=== PATIENT | female | born 1980 | race Caucasian/White ===

== ENCOUNTER → 2019-02-10 | Outpatient (CLI) | payer MEDICAID ==
--- NOTE | 2019-02-10 16:33 | Diagnostic Imaging Report ---
INDICATION: Palpable lump in the right breast. COMPARISON: No prior mammograms are available for comparison. This is a baseline study. TECHNIQUE: Bilateral 2D and 3D diagnostic mammography was performed with CAD. FINDINGS: Scattered fibroglandular densities are identified bilaterally. A BB-marker was placed at the area of palpable abnormality in the medial right breast. No underlying mass is seen. The right breast parenchyma is unremarkable. There is a circumscribed nodule in the outer left breast approximately 12 cm from the nipple. This may be superiorly located on the MLO view. This has benign features but further evaluation with ultrasound is recommended. There are no suspicious calcifications. The axillae are unremarkable. IMPRESSION: 1. No suspicious abnormality in the right breast is seen at the area of palpable abnormality. Even so, an ultrasound of this area is recommended and will be performed today. 2. Small circumscribed benign-appearing nodule in the outer left breast at posterior depth. This, too, will be further evaluated with ultrasound. ACR BI-RADS Category 0: Incomplete. (Needs additional imaging evaluation). Result letter will be mailed to the patient. Note: At least 10% of breast cancer is not imaged by mammography. Dictated by: Dictated on workstation # [id number]
--- NOTE | 2019-02-10 16:43 | Diagnostic Imaging Report ---
INDICATION: Palpable lump in the medial right breast. In addition, the patient has a circumscribed nodule in the lateral left breast on mammogram. This study is performed for further evaluation. COMPARISON: Correlation is made with the diagnostic mammogram from earlier this same day. FINDINGS: Sonographic interrogation of the area of lump in the right breast was performed. This corresponds to the medial right breast. No sonographic abnormality is seen. No solid or cystic mass is detected. Interrogation of the upper outer left breast was also performed. There are two small cysts at approximately the 1 to 1:30 location. The largest is 6 mm x 5 mm. The second cyst is 5 mm x 4 mm. These likely account for the mammographic density. No solid lesion is seen. IMPRESSION: 1. No sonographic abnormality at the area of palpable abnormality in the medial right breast is identified. Close clinical followup is recommended to confirm stability. 2. Simple cysts in the upper outer left breast correspond to the mammographic density. ACR BI-RADS Category 2: Benign findings. Result letter will be mailed to the patient. Note: At least 10% of breast cancer is not imaged by mammography. Dictated by: Dictated on workstation # [id number]
== END ==
LOC: RAD 13:24
PROVIDERS: ATTEND Registered Nurse
DX: N60.02 Solitary cyst of left breast (principal); N63.10 Unspecified lump in the right breast, unspecified quadrant
CPT/HCPCS: 76642; 77066

== ENCOUNTER → 2020-03-20 | Outpatient (CLI) | payer MEDICAID ==
--- NOTE | 2020-03-20 10:57 | Diagnostic Imaging Report ---
PROCEDURE: US OB SINGLE FETUS <14 WKS. TECHNIQUE: Multiple Real-time grayscale images were obtained over the gravid uterus in various projections. INDICATION: dating. FINDINGS: There is an intrauterine gestational sac containing a pole. The crown/rump length measurement is 15 mm, consistent with a 7 weeks 6 days gestational age. The heart rate was recorded at 179 BPM. No eunice-gestational sac hemorrhage is detected. Adnexal evaluation demonstrates a probable cyst involving the right ovary measuring approximately 2.6 x 2.8 cm in size. No free fluid is seen. IMPRESSION: 1. Single live IUP of 7 weeks 6 days gestational age. The estimated date of confinement sonographically is 10/31/2020. 2. Right ovarian cyst. Dictated by: Dictated on workstation # [id number]
== END ==
LOC: RAD 09:37
PROVIDERS: ATTEND Family Medicine
DX: O34.81 Maternal care for other abnormalities of pelvic organs, first trimester (principal); N83.201 Unspecified ovarian cyst, right side; Z3A.01 Less than 8 weeks gestation of pregnancy
CPT/HCPCS: 76801

== ENCOUNTER → 2020-05-31 | Outpatient (CLI) | payer MEDICAID ==
--- NOTE | 2020-05-31 16:56 | Diagnostic Imaging Report ---
INDICATION: Routine anatomic survey. TECHNIQUE: Multiple Real-time grayscale images were obtained over the gravid uterus. COMPARISON: None. MEASUREMENTS: Number: Single live Presentation: Cephalic Placenta: Anterior Amniotic Fluid: SHYANNE is within normal limits, subjectively. Objective measurements were not obtained. Heart Rate: 133 bpm BPD: 4.4 cm; consistent with 19 weeks and 3 days HC: 15.8 cm; consistent with 18 weeks and 5 days AC: 13.4 cm; consistent with 19 weeks and 0 days FL: 2.9 cm; consistent with 18 weeks and 6 days EGA from current exam: 19 weeks and 0 days gestation plus or minus 2 NAILA from current exam: 10/25/2020 CLINICAL DATES: Gestational age 18 weeks and 1 day, NAILA 10/31/2020 EFW: 260 g +/- 38 g. This is consistent with the 36th percentile. FINDINGS: The anatomic survey is grossly unremarkable. The stomach, four-chamber heart, kidneys, bladder, three-vessel cord, and the cord insertion are well seen. The spine and intracranial structures are grossly unremarkable. IMPRESSION: Single live intrauterine at approximately 19 weeks and 0 days with an NAILA of 10/25/2020. These are concordant with clinical dates. No gross abnormalities are seen at this time. Dictated by: Dictated on workstation # [id number]
== END ==
LOC: RAD 12:00
PROVIDERS: ATTEND Family Medicine
DX: Z34.02 Encounter for supervision of normal first pregnancy, second trimester (principal); Z3A.19 19 weeks gestation of pregnancy
CPT/HCPCS: 76805

== ENCOUNTER → 2020-08-08 | Outpatient (CLI) | payer MEDICAID ==
--- NOTE | 2020-08-08 08:55 | NUR ---
DION LOCKWOOD presented to unit via ambulation from registration for rhogam administration. DION LOCKWOOD shown to waiting room while waiting for lab to prepare dose.
--- NOTE | 2020-08-08 09:25 | NUR ---
Pt ambulates off unit to private vehicle, no s/s of distress noted.
== END ==
LOC: WSo 08:43
PROVIDERS: ATTEND Family Medicine
DX: O36.0990 Maternal care for other rhesus isoimmunization, unspecified trimester, not applicable or unspecified (principal); Z3A.00 Weeks of gestation of pregnancy not specified
CPT/HCPCS: 96372

== ENCOUNTER → 2020-09-04 | Outpatient (CLI) | payer MEDICAID | LOC: CARD 15:09 | PROVIDERS: ATTEND Family Medicine | DX: R42 Dizziness and giddiness (principal) | CPT/HCPCS: 93005 ==

== ENCOUNTER → 2020-10-19 | Outpatient (CLI) | payer MEDICAID ==
--- NOTE | 2020-10-19 17:03 | Diagnostic Imaging Report ---
INDICATION: patient, evaluate growth. TECHNIQUE: Multiple real-time grayscale images were obtained over the gravid uterus. COMPARISON: 05/31/2020 FINDINGS: A single live intrauterine fetus is seen measuring 39 weeks 3 days by composite measurements with sonographic EDC of 10/23/2020. There has been normal interval growth compared to the prior study. Amniotic fluid index is 6.88 cm. Placenta is anterior with no evidence of previa. heart rate is 135 bpm. Maternal adnexa showed no free fluid. The fetus scored 2 out of 2 on breathing, movement, posture and tone, and amniotic fluid index. Biometrical measurements are as follows: Biparietal 9.33 cm, age 38 weeks 0 days. Head circumference 34.32 cm, age 39 weeks 5 days. Abdominal circumference 35.75 cm, age 39 weeks 5 days. Femur length 7.80 cm, age 40 weeks 0 days. Sonographic estimate age: 39 weeks 3 days. Sonographic estimated date of delivery: 10/23/2020. Estimated Weight: 3796 gm (+/- 554 gm). LMP percentile: 78%. heart rate: 135 beats per minute. number: 1 of 1. IMPRESSION: Single live intrauterine fetus measuring 39 weeks 3 days in size as described above. biophysical profile score was 8 out of 8. Dictated by: Dictated on workstation # [id number]
== END ==
LOC: RAD 14:30
PROVIDERS: ATTEND Obstetrics & Gynecology
DX: O09.523 Supervision of elderly multigravida, third trimester (principal); Z3A.39 39 weeks gestation of pregnancy
CPT/HCPCS: 76805; 76819

== ENCOUNTER 2020-10-24 06:30 | Inpatient (IN) | payer MEDICAID ==
[~2020-10-24] VITALS: Ht 172.7 cm; Wt 123.0 kg
[2020-10-24] VITALS (58 sets, daily range): BP systolic 95–153; BP diastolic 48–88
[2020-10-24] MEDS ORDERED: D5 LR IV SOLUTION 1,000 ML IV ONE (07:09)
[2020-10-24] MEDS ORDERED: fentaNYL 2 mcg/ml BUPIVA 0.125 100 ML ONE (07:09)
[2020-10-24] MEDS ORDERED: LACTATED RINGERS 1,000 ML IV ONE (07:09)
[2020-10-24] MEDS ORDERED: MINERAL OIL CONCENTRATE 99.9% 15 ML UDC TOP PRN (08:00)
[2020-10-24 08:10] LABS: BASOPHILS % (AUTO) 0 % (0-10); EOSINOPHILS # (AUTO) 0.2 10^3/uL (0.0-0.3); EOSINOPHILS % (AUTO) 1 % (0-10); HEMATOCRIT 35 % (35-52); HEMOGLOBIN 11.3 g/dL (11.5-16.0); LYMPHOCYTES # (AUTO) 2.2 10^3/uL (1.0-4.0); LYMPHOCYTES % (AUTO) 18 % (12-44); MEAN CORPUSCULAR HEMOGLOBIN 29 pg (25-34); MEAN CORPUSCULAR HGB CONC 33 g/dL (32-36); MEAN CORPUSCULAR VOLUME 88 fL (80-99); MEAN PLATELET VOLUME 12.3 fL (9.0-12.2); MONOCYTES # (AUTO) 0.8 10^3/uL (0.0-1.0); MONOCYTES % (AUTO) 7 % (0-12); NEUTROPHILS # (AUTO) 8.6 10^3/uL (1.8-7.8); NEUTROPHILS % (AUTO) 72 % (42-75); PLATELET COUNT 315 10^3/uL (130-400)
[2020-10-24] MEDS ORDERED: NALOXONE 0.4 MG/ML 1 ML (NARCAN) VIAL IV PRN ×2 (08:45)
[2020-10-24] MEDS ORDERED: LACTATED RINGERS 1,000 ML IV SCH (08:45)
[2020-10-24] MEDS ORDERED: diphenhydrAMINE 50 MG/ML INJ (BENADRYL) IV PRN (08:45)
[2020-10-24] MEDS ORDERED: EPIDURAL (fentaNYL 2 MCG/ML BUPIVA 0.125%)100 ML BAG EPI SCH (08:45)
[2020-10-24] MEDS ORDERED: METOCLOPRAMIDE INJ 10 MG/2 ML (REGLAN) IV PRN (08:45)
[2020-10-24] MEDS ORDERED: ONDANSETRON 4 MG/2 ML (SDV) Z0FRAN IV PRN (08:45)
[2020-10-24] MEDS ORDERED: OXYTOCIN PRE-MIX DRIP 500 ML IV ONE (09:34)
[2020-10-24] MEDS: D5 LR IV SOLUTION 1,000 ML IV SCH ×2 (09:44→15:38)
[2020-10-24] MEDS: OXYTOCIN PRE-MIX DRIP 500 ML IV SCH ×2 (09:45→19:06)
--- NOTE | 2020-10-24 09:51 | History & Physical-OB ---
OB - Chief Complaint & HPI Date/Time Date of Admission: Date of Admission: Oct 24, 2020 at 06:53 Date seen by a Provider: Oct 24, 2020 Time Seen by a Provider: 09:00 Chief Complaint/History OB-Reason for Admission/Chief: Induction of Labor (TOLAC) Hx : 7 Hx Para: 5 Expected Date of Delivery: Oct 25, 2020 Gestational Age in Weeks: 39 Gestational Age in Days: 6 Indication for induction: other (TOLAC Advanced maternal age) Indication for : other Other reason for admission: This is a 40 year old at 39 6/7 weeks. she was referred to me by Dr. Glover for history of CS desiring TOLAC. She has had 4 vaginal deliveries that were uncomplicated. Babies weight 6#9ounces-8#5ounces. She had a CS with last for distress/intolerance to labor. This has been uncomplicated. She had US last week showing vertex fetus with SHYANNE of 6.8 cm, BPP 8/8. EFW 3700 + grams. Wanted to await spontaneous labor, but agreed to induction if not delivered by 40 weeks as she wanted to OLIVIA. She has signed the TOLAC consent form and appropriate consent forms. GBS is negative. No LOF, no VB, BH contractions, good FM. Cervix in office yesterday was 2-3 cm/soft/ant-mid/-2. Plan admission with epidural, AROM and pitocin. Dr. Glover will be the baby's physician. Admission Nurse Assessment Rev: Yes History of Labs A-/-; Rhogam received at 28 weeks Rub I VDRL NR HbSAg - HIV - GBS - GC/Ch - Cannot find TDaP vaccination during so may not have received this. Allergies and Home Medications Allergies Coded Allergies: No Known Drug Allergies (Verified Allergy, Unknown, 01/18/08) Patient Home Medication List Home Medication List Reviewed: Yes OB - History Hx of Present Care: Yes Ultrasounds: Normal mid trimester US Obstetrical Complications: None Medical Complications: None, Other (AMA, previous section) Information Induced Hypertension: No Maternal Gestational Diabetes: No Obstetrical History Hx : 7 Hx Para: 5 Hx # Term Pregnancies: 5 Hx # Pregnancies: 0 Number of Living Children: 5 Hx Termination: No Hx Total # of Abortions (Spona: 1 Hx Multiple Gestation: No Hx Ectopic : No Hx Stillbirth: No (16 week miscarriage) Hx Complication: No Hx Induced Hypertens: No Hx Maternal Gestational Diabet: No Delivery History Hx Dystocia: No Hx Forceps Assisted Delivery: No Hx Vacuum Extraction Assisted: No Hx Placenta Abnormality: No Hx Distress: Yes Hx Large For Gestational Age I: No Hx Small for Gestational Age I: No Hx Section: Yes Hx Vaginal Delivery Post C-Sec: No Hx Blood Disorders: No Patient Past Medical History depression/Cymbalta Social History/Family History Alcohol Use: Denies Use Recreational Drug Use: No Smoking Cessation: Former smoker Significant Family Hx hypertension Immunizations Hepatitis B: Yes Tetanus Booster (TDap): Unknown Rubella: immune RPR/VDRL: Negative GBS Status: Negative HBsAG: Negative OB - Admission Exam Physical Exam Vitals: see RN chart Heart: Rhythm Normal Lungs: Clear Abdomen: Gravid Extremities: Edema (1+) Reflexes: Normal Cervical Dilatation: 3cm Effacement: 50% Station: -2 Membranes: Intact (AROM on exam) Amniotic Fluid: Clear Heart Rate: 140's Accelerations: Accelerations Present Decelerations: No Decelerations Short Term Variability: Present Fpc Variability: Average (6-25) Contractions on Admission: 6-10 Minutes Apart Macedo Scoring Tool (Modified) Dilation (cm): 3-4cm (2) Effacement (%): 31-51% (1) Descent/Station: -2 (1) Cervix Consistency: Soft (2) Cervix Position: Anterior (2) Add 1 point for: Each previous vaginal delivery (1) (4) Macedo Score: 12 Labs Laboratory Tests Test 10/24/20 07:25 Range/Units White Blood Count 12.0 H 4.3-11.0 10^3/uL Red Blood Count 3.93 3.80-5.11 10^6/uL Hemoglobin 11.3 L 11.5-16.0 g/dL Hematocrit 35 35-52 % Mean Corpuscular Volume 88 80-99 fL Mean Corpuscular Hemoglobin 29 25-34 pg Mean Corpuscular Hemoglobin Concent 33 32-36 g/dL Red Cell Distribution Width 13.4 10.0-14.5 % Platelet Count 315 130-400 10^3/uL Mean Platelet Volume 12.3 H 9.0-12.2 fL Immature Granulocyte % (Auto) 2 % Neutrophils (%) (Auto) 72 42-75 % Lymphocytes (%) (Auto) 18 12-44 % Monocytes (%) (Auto) 7 0-12 % Eosinophils (%) (Auto) 1 0-10 % Basophils (%) (Auto) 0 0-10 % Neutrophils # (Auto) 8.6 H 1.8-7.8 10^3/uL Lymphocytes # (Auto) 2.2 1.0-4.0 10^3/uL Monocytes # (Auto) 0.8 0.0-1.0 10^3/uL Eosinophils # (Auto) 0.2 0.0-0.3 10^3/uL Basophils # (Auto) 0.0 0.0-0.1 10^3/uL Immature Granulocyte # (Auto) 0.2 H 0.0-0.1 10^3/uL OB - Assessment/Plan/Diagnosis Assessment Assessment: induction of labor Admission Dx 1. 40 year old at 39 6/7 weeks with history of previous CS for TOLAC 2. Advanced maternal age Plan admission with epidural. Has signed appropriate consents. Calculated chance of > 75 % AROM and then augmentation with pitocin. We have discussed the risks and benefits of TOLAC/. vs repeat section and she has requested TOLAC. Appropriate consents, including the TOLAC consent has been signed and are on the chart. She will have epidural placed and then proceed with induction. She understands that there is still a possibility of repeat section for normal section indications, but that with previous uterine scar (LT) there is a slight increase in uterine rupture. However, her chance of vaginal delivery is much greater. She understands there is a risk of bleeding, infection, uterine rupture requiring emergency surgery, blood transfusion, and maternal due to uterine rupture, bleeding, thrombosis, epidural and anesthesia related complications. Will proceed with planned TOLAC and expect a vaginal delivery (). Admission Status: Inpatient Order (span 2 midnights) Reason for Inpatient Admission: induction and delivery Plan Plan: Induction Induction Method: per Pitocin Protocol ZELALEM VO DO Oct 24, 2020 09:50
[2020-10-24] MEDS ORDERED: CATHETER FLUSH 10 ML SYR IV SCH ×2 (14:00→22:00)
[2020-10-24] MEDS ORDERED: TRANEXAMIC ACID INJECTION 1,000 MG in NS (IVPB) 100 ML IV NR (16:00)
--- NOTE | 2020-10-24 18:35 | OB Labor & Delivery Record ---
Vag Delivery Note Vag Delivery Note Date of Delivery: 10/24/20 Preoperative Diagnosis: Brenna Chamberlain is a 40 /Para 7 / 5,Gestational Age 39 6/7 week, history of previous , Advanced maternal age Postoperative Diagnosis: Same Surgeon: ZELALEM VO Machine Guide Base Winder: Nestor Vizcarra, MS III Anesthesia: epidural Delivery Type: Vaginal after Findings: Viable male infant, apgars pending, weight pending Lacerations: none Intact placenta with 3 vessel cord. Nuchal cord x 1 delivered thorough, no body cord or shoulder dystocia Estimated Blood Loss: 200 ml Complications: None Condition: Stable Description of Procedure: The patient is a 40 year old female who presented for trial of labor after section. She was admitted and informed consent was obtained. Her labor course was remarkable for artificial rupture of membranes and augmentation by pitocin. She progressed to complete dilatation and began to push. She was then set up for delivery. The infant's head was delivered atraumatically in the left position. The shoulders and remainder of the infant's body were then delivered without difficulty. Upon delivery, the head was held below the level of the perineum and the mouth and nares were bulb suctioned. The cord was doubly clamped and cut and the infant was handed off to the pediatric staff. An intact placenta with 3-vessel cord delivered via Antony and there was found to be minimal bleeding.~ Vigorous fundal massage was performed and the fundus was found to be firm. IV tansexamic acid given prior to delivery of placenta for hemorrhage prophylaxis. IV oxytocin was given. Examination of the vagina and perineum revealed bilateral periurethral lacerations not repaired. Following the delivery, sponge, instrument and needle counts were correct. Mom and baby were both in stable condition in the labor suite. Vitals - Labs Vital Signs - I&O Vital Signs Date Time Temp Pulse Resp B/P (MAP) Pulse Ox O2 Delivery O2 Flow Rate FiO2 10/24/20 16:00 82 20 128/75 (92) 98 Room Air 10/24/20 15:45 113 20 119/70 (86) 99 Room Air 10/24/20 15:30 77 20 133/78 (96) 99 Room Air 10/24/20 15:15 69 20 133/76 (95) 98 Room Air 10/24/20 15:00 86 20 126/87 (100) 97 Room Air 10/24/20 14:45 77 20 142/82 (102) 99 Room Air 10/24/20 14:30 75 20 129/65 (86) 98 Room Air 10/24/20 14:15 80 20 127/77 (94) 98 Room Air 10/24/20 14:00 71 20 129/67 (87) 96 Room Air 10/24/20 13:45 70 20 121/62 (81) 96 Room Air 10/24/20 13:30 73 20 122/62 (82) 96 Room Air 10/24/20 13:15 76 20 125/65 (85) 98 Room Air 10/24/20 13:00 66 20 121/62 (81) 97 Room Air 10/24/20 12:45 70 20 118/61 (80) 98 Room Air 10/24/20 12:30 73 20 124/64 (84) 98 Room Air 10/24/20 12:15 74 20 123/61 (81) 99 Room Air 10/24/20 12:00 79 20 111/55 (73) 99 Room Air 10/24/20 11:45 72 20 118/62 (80) 98 Room Air 10/24/20 11:30 70 20 119/59 (79) 98 Room Air 10/24/20 11:15 68 20 127/61 (83) 98 Room Air 10/24/20 11:00 81 20 126/60 (82) 99 Room Air 10/24/20 10:45 85 20 117/57 (77) 98 Room Air 10/24/20 10:30 80 20 112/55 (74) 97 Room Air 10/24/20 10:15 74 20 119/58 (78) 97 Room Air 10/24/20 10:00 83 20 137/65 (89) 97 Room Air 10/24/20 09:43 82 20 131/60 (83) 99 Room Air 10/24/20 09:40 100 20 137/60 (85) 99 Room Air 10/24/20 09:35 88 20 95/65 (75) 100 Room Air 10/24/20 09:30 88 20 123/61 (81) 100 Room Air 10/24/20 09:26 76 20 128/60 (82) 100 Room Air 10/24/20 09:22 102 20 114/53 (73) 100 Room Air 10/24/20 09:19 84 20 126/54 (78) 100 Room Air 10/24/20 09:15 80 20 136/60 (85) 100 Room Air 10/24/20 09:10 82 20 137/51 (79) 100 Room Air 10/24/20 09:07 87 20 114/55 (74) 100 Room Air 10/24/20 09:03 78 20 131/68 (89) 100 Room Air 10/24/20 09:00 72 20 135/63 (87) 100 Room Air 10/24/20 08:55 82 20 136/62 (86) 100 Room Air 10/24/20 08:50 80 20 140/65 (90) 100 Room Air 10/24/20 08:45 37.0 70 20 135/63 (87) 98 Room Air 10/24/20 07:35 37.0 80 20 96 Room Air Labs Laboratory Tests 10/24/20 07:25: White Blood Count 12.0H, Red Blood Count 3.93, Hemoglobin 11.3L, Hematocrit 35, Mean Corpuscular Volume 88, Mean Corpuscular Hemoglobin 29, Mean Corpuscular Hemoglobin Concent 33, Red Cell Distribution Width 13.4, Platelet Count 315, Mean Platelet Volume 12.3H, Immature Granulocyte % (Auto) 2, Neutrophils (%) (Auto) 72, Lymphocytes (%) (Auto) 18, Monocytes (%) (Auto) 7, Eosinophils (%) (Auto) 1, Basophils (%) (Auto) 0, Neutrophils # (Auto) 8.6H, Lymphocytes # (Auto) 2.2, Monocytes # (Auto) 0.8, Eosinophils # (Auto) 0.2, Basophils # (Auto) 0.0, Immature Granulocyte # (Auto) 0.2H ZELALEM VO DO Oct 24, 2020 18:34
[2020-10-24] MEDS ORDERED: TETANUS,DIPTH,PERTUSS P/F (BOOSTRIX) 0.5 ML VIAL IM ONE (18:45)
[2020-10-24] MEDS ORDERED: DIBUCAINE 1% OINTMENT 30 GM TUBE TOP PRN (18:45)
[2020-10-24] MEDS ORDERED: MEASLES,MUMPS,RUBELLA 1 EA INJ SQ ONE (18:45)
[2020-10-24] MEDS ORDERED: OXYTOCIN PRE-MIX DRIP 500 ML IV SCH (18:45)
[2020-10-24] MEDS ORDERED: BENZOCAINE/MENTHOL (DERMOPLAST) 56 ML CAN TP PRN (18:45)
[2020-10-24] MEDS ORDERED: WITCH HAZEL(TUCKS) 40 EA JAR TOP PRN (18:45)
[2020-10-24] MEDS: ACETAMINOPHEN 500 MG TAB (TYLENOL) PO SCH (21:08)
[2020-10-24] MEDS: DOCUSATE SODIUM 100 MG (COLACE) CAP PO SCH (21:08)
[2020-10-24] MEDS: IBUPROFEN 600 MG (MOTRIN) TAB PO SCH (23:52)
[2020-10-25 00:02] VITALS: BP 103/54
[2020-10-25 04:30] VITALS: BP 126/66
[2020-10-25] MEDS: IBUPROFEN 600 MG (MOTRIN) TAB PO SCH ×4 (05:52→23:53)
[2020-10-25] MEDS: ACETAMINOPHEN 500 MG TAB (TYLENOL) PO SCH ×2 (05:52→18:02)
[2020-10-25 06:14] LABS: BASOPHILS # (AUTO) 0.1 10^3/uL (0.0-0.1); BASOPHILS % (AUTO) 0 % (0-10); EOSINOPHILS # (AUTO) 0.1 10^3/uL (0.0-0.3); EOSINOPHILS % (AUTO) 0 % (0-10); HEMATOCRIT 33 % (35-52); HEMOGLOBIN 10.7 g/dL (11.5-16.0); LYMPHOCYTES # (AUTO) 2.2 10^3/uL (1.0-4.0); LYMPHOCYTES % (AUTO) 11 % (12-44); MEAN CORPUSCULAR HEMOGLOBIN 29 pg (25-34); MEAN CORPUSCULAR HGB CONC 32 g/dL (32-36); MEAN CORPUSCULAR VOLUME 90 fL (80-99); MEAN PLATELET VOLUME 12.1 fL (9.0-12.2); MONOCYTES # (AUTO) 1.1 10^3/uL (0.0-1.0); MONOCYTES % (AUTO) 6 % (0-12); NEUTROPHILS # (AUTO) 16.9 10^3/uL (1.8-7.8); NEUTROPHILS % (AUTO) 82 % (42-75); PLATELET COUNT 267 10^3/uL (130-400); WHITE BLOOD COUNT 20.6 10^3/uL (4.3-11.0)
--- NOTE | 2020-10-25 06:52 | Anesthesia-Regional Post-Op ---
Regional Patient Condition Mental Status: Alert, Oriented x3 Circulation: Same as Pre-Op Headache: Absent Sensation: Full Recovery Motor Block: Absent Post Op Complications Complications None Follow Up Care/Instructions Patient Instructions None needed. Anesthesia/Patient Condition Patient is doing well, no complaints, stable vital signs, no apparent adverse anesthesia problems. No complications reported per nursing. SHALONDA BOYD CRNA Oct 25, 2020 06:52
[2020-10-25] MEDS ORDERED: BENZOCAINE/MENTHOL (DERMOPLAST) 56 ML CAN TP PRN (07:15)
[2020-10-25] MEDS: PRENATAL VITAMIN 1 EA TAB PO SCH (08:56)
[2020-10-25] MEDS: FERROUS SULF 325 MG (IRON) TAB PO SCH (08:56)
[2020-10-25] MEDS: DOCUSATE SODIUM 100 MG (COLACE) CAP PO SCH ×2 (08:56→19:46)
[2020-10-25 08:58] VITALS: BP 105/58
--- NOTE | 2020-10-25 08:59 | Postpartum Progress Note ---
Note Note Day # 1 s/p , advanced maternal age Subjective: Patient is without complaints. Ambulating, voiding. Tolerating a regular diet without nausea or vomiting. Normal lochia. Pain is well controlled with oral pain medications. feeding. [] Objective: Laboratory Tests Test 10/25/20 05:47 Range/Units White Blood Count 20.6 H 4.3-11.0 10^3/uL Red Blood Count 3.70 L 3.80-5.11 10^6/uL Hemoglobin 10.7 L 11.5-16.0 g/dL Hematocrit 33 L 35-52 % Mean Corpuscular Volume 90 80-99 fL Mean Corpuscular Hemoglobin 29 25-34 pg Mean Corpuscular Hemoglobin Concent 32 32-36 g/dL Red Cell Distribution Width 13.5 10.0-14.5 % Platelet Count 267 130-400 10^3/uL Mean Platelet Volume 12.1 9.0-12.2 fL Immature Granulocyte % (Auto) 1 % Neutrophils (%) (Auto) 82 H 42-75 % Lymphocytes (%) (Auto) 11 L 12-44 % Monocytes (%) (Auto) 6 0-12 % Eosinophils (%) (Auto) 0 0-10 % Basophils (%) (Auto) 0 0-10 % Neutrophils # (Auto) 16.9 H 1.8-7.8 10^3/uL Lymphocytes # (Auto) 2.2 1.0-4.0 10^3/uL Monocytes # (Auto) 1.1 H 0.0-1.0 10^3/uL Eosinophils # (Auto) 0.1 0.0-0.3 10^3/uL Basophils # (Auto) 0.1 0.0-0.1 10^3/uL Immature Granulocyte # (Auto) 0.3 H 0.0-0.1 10^3/uL 10/25/20 10/25/20 00:02 04:30 Temp 36.3 36.1 Pulse 80 64 Resp 18 18 B/P (MAP) 103/54 (70) 126/66 (86) Pulse Ox 96 O2 Delivery Room Air Room Air 10/25/20 00:00 Intake Total 1960 ml Balance 1960 ml Physical Exam: General - Alert and oriented, no apparent distress Abdomen - Soft, appropriately tender to palpation, non-distended, fundus firm at umbilicus Extremities - no edema, negative Julienne's bilaterally [] Assessment: [] post- day # [], status post [] vaginal delivery. Recovering well, hemodynamically stable [] Plan: Routine care. Encourage breast feeding. Encourage ambulation. Ferrous sulfate supplementation. Plan for discharge [] Vitals - Labs Vital Signs - I&O Vital Signs Date Time Temp Pulse Resp B/P (MAP) Pulse Ox O2 Delivery O2 Flow Rate FiO2 10/25/20 04:30 36.1 64 18 126/66 (86) 96 Room Air 10/25/20 00:02 36.3 80 18 103/54 (70) Room Air 10/24/20 20:43 89 18 121/58 (79) Room Air 10/24/20 20:28 90 18 124/59 (80) Room Air 10/24/20 20:13 98 18 128/84 (99) Room Air 10/24/20 19:58 93 18 137/64 (88) Room Air 10/24/20 19:42 36.5 85 18 131/58 (82) Room Air 10/24/20 19:28 81 18 128/60 (82) Room Air 10/24/20 19:12 80 18 134/61 (85) Room Air 10/24/20 18:57 36.4 85 20 142/65 (90) Room Air 10/24/20 18:45 36.8 93 20 136/63 (87) Room Air 10/24/20 18:30 37.0 96 20 125/48 (73) Room Air 10/24/20 17:45 86 20 145/72 (96) Room Air 10/24/20 17:30 85 20 126/69 (88) Room Air 10/24/20 17:15 85 20 125/58 (80) Room Air 10/24/20 17:00 98 20 116/69 (85) Room Air 10/24/20 16:45 88 20 128/57 (80) Room Air 10/24/20 16:35 77 20 140/69 (92) Room Air 10/24/20 16:15 36.8 93 20 153/88 (109) 99 Room Air 10/24/20 16:00 82 20 128/75 (92) 98 Room Air 10/24/20 15:45 113 20 119/70 (86) 99 Room Air 10/24/20 15:30 77 20 133/78 (96) 99 Room Air 10/24/20 15:15 69 20 133/76 (95) 98 Room Air 10/24/20 15:00 86 20 126/87 (100) 97 Room Air 10/24/20 14:45 77 20 142/82 (102) 99 Room Air 10/24/20 14:30 75 20 129/65 (86) 98 Room Air 10/24/20 14:15 80 20 127/77 (94) 98 Room Air 10/24/20 14:00 71 20 129/67 (87) 96 Room Air 10/24/20 13:45 70 20 121/62 (81) 96 Room Air 10/24/20 13:30 73 20 122/62 (82) 96 Room Air 10/24/20 13:15 76 20 125/65 (85) 98 Room Air 10/24/20 13:00 66 20 121/62 (81) 97 Room Air 10/24/20 12:45 70 20 118/61 (80) 98 Room Air 10/24/20 12:30 73 20 124/64 (84) 98 Room Air 10/24/20 12:15 74 20 123/61 (81) 99 Room Air 10/24/20 12:00 79 20 111/55 (73) 99 Room Air 10/24/20 11:45 72 20 118/62 (80) 98 Room Air 10/24/20 11:30 70 20 119/59 (79) 98 Room Air 10/24/20 11:15 68 20 127/61 (83) 98 Room Air 10/24/20 11:00 81 20 126/60 (82) 99 Room Air 10/24/20 10:45 85 20 117/57 (77) 98 Room Air 10/24/20 10:30 80 20 112/55 (74) 97 Room Air 10/24/20 10:15 74 20 119/58 (78) 97 Room Air 10/24/20 10:00 83 20 137/65 (89) 97 Room Air 10/24/20 09:43 82 20 131/60 (83) 99 Room Air 10/24/20 09:40 100 20 137/60 (85) 99 Room Air 10/24/20 09:35 88 20 95/65 (75) 100 Room Air 10/24/20 09:30 88 20 123/61 (81) 100 Room Air 10/24/20 09:26 76 20 128/60 (82) 100 Room Air 10/24/20 09:22 102 20 114/53 (73) 100 Room Air 10/24/20 09:19 84 20 126/54 (78) 100 Room Air 10/24/20 09:15 80 20 136/60 (85) 100 Room Air 10/24/20 09:10 82 20 137/51 (79) 100 Room Air 10/24/20 09:07 87 20 114/55 (74) 100 Room Air 10/24/20 09:03 78 20 131/68 (89) 100 Room Air 10/24/20 09:00 72 20 135/63 (87) 100 Room Air I & O 10/25/20 07:00 Intake Total 1960 ml Balance 1960 ml Labs Laboratory Tests 10/25/20 05:47: White Blood Count 20.6H, Red Blood Count 3.70L, Hemoglobin 10.7L, Hematocrit 33L , Mean Corpuscular Volume 90, Mean Corpuscular Hemoglobin 29, Mean Corpuscular Hemoglobin Concent 32, Red Cell Distribution Width 13.5, Platelet Count 267, Mean Platelet Volume 12.1, Immature Granulocyte % (Auto) 1, Neutrophils (%) (Auto) 82H, Lymphocytes (%) (Auto) 11L, Monocytes (%) (Auto) 6, Eosinophils (%) (Auto) 0, Basophils (%) (Auto) 0, Neutrophils # (Auto) 16.9H, Lymphocytes # (Auto) 2.2, Monocytes # (Auto) 1.1H, Eosinophils # (Auto) 0.1, Basophils # (Auto) 0.1, Immature Granulocyte # (Auto) 0.3H ZELALEM VO DO Oct 25, 2020 08:59
[2020-10-25 12:00] VITALS: BP 127/60
[2020-10-25 18:04] VITALS: BP 128/69
[2020-10-25 23:51] VITALS: BP 130/60
[2020-10-26] MEDS: IBUPROFEN 600 MG (MOTRIN) TAB PO SCH (05:39)
[2020-10-26 05:40] VITALS: BP 124/69
[2020-10-26] MEDS: FERROUS SULF 325 MG (IRON) TAB PO SCH (08:23)
[2020-10-26] MEDS: ACETAMINOPHEN 500 MG TAB (TYLENOL) PO SCH (08:24)
[2020-10-26] MEDS: DOCUSATE SODIUM 100 MG (COLACE) CAP PO SCH (08:24)
[2020-10-26] MEDS: PRENATAL VITAMIN 1 EA TAB PO SCH (08:24)
[2020-10-26] MEDS ORDERED: IBUP-844 PO (08:51)
[2020-10-26] MEDS ORDERED: ACET-93 PO (08:51)
--- NOTE | 2020-10-26 08:52 | Discharge Inst-Women's Service ---
Discharge Inst-Women's Serv Depart Medication/Instructions New, Converted or Re-Newed RX: RX on Chart Instructions nothing in vagina for 4 weeks Final Diagnosis advanced maternal age previous section vaginal after section Problems Reviewed?: Yes Consults/Follow Up Additional Follow Up: Yes (post exam with Dr. Glover) Activity Activity: Activity as Tolerated Driving Instructions: You May Drive NO SMOKING: NO SMOKING Nothing Inside Vagina: No Douching, No [place], No Tampons Diet Discharge Diet: No Restrictions Symptoms to Report to : Swelling Increased, Bleeding Excessive, Pain Increased, Fever Over 101 Degrees F, Vaginal Bleeding Increase, Cramps in Feet or Legs, Vaginal Discharge Foul For Any Problems or Questions: Contact Your Physician ZELALEM VO DO Oct 26, 2020 08:52
[2020-10-26 09:00] VITALS: BP 150/70
[2020-10-26 10:40] VITALS: BP 123/60
[2020-10-26 11:55] VITALS: BP 123/60
== END 2020-10-26 11:55 | disposition home or self-care (01) | DRG 807 ==
LOC: LDRP 06:53
PROVIDERS: ADMIT Obstetrics & Gynecology; ATTEND Obstetrics & Gynecology
PROC: 10E0XZZ Delivery of Products of Conception, External Approach (ICD-10-PCS; principal; 2020-10-24)
PROC: 10907ZC Drainage of Amniotic Fluid, Therapeutic from Products of Conception, Via Natural or Artificial Opening (ICD-10-PCS; 2020-10-24)
DX: O34.211 Maternal care for low transverse scar from previous cesarean delivery (principal); Z37.0 Single live birth; Z3A.39 39 weeks gestation of pregnancy; Z87.891 Personal history of nicotine dependence
CPT/HCPCS: 36415; 83033; 85025; 86850; 86900; 86901; 90715